=== PATIENT | male | born 1970 | race Caucasian/White ===

== ENCOUNTER → 2024-09-12 | Outpatient (CLI) | payer OTHER ==
--- NOTE | 2024-09-12 11:50 | HMCIMG ---
Exam Type: US SOFT TISSUE NECK Clinical Information: Parotid gland enlargement, lymphadenitis Comparison: None Findings: Bilateral normal appearing neck lymph nodes are seen, more prominent surrounding the left periparotid region. No parotid abnormalities are seen either side and there are no other significant findings. IMPRESSION: Normal-appearing lymph nodes of the neck.
--- NOTE | 2024-09-12 11:52 | HMCIMG ---
THYROID ULTRASOUND History: Goiter Comparison: None Findings: The examination shows normal thyroid lobes. No thyroid masses are seen. There are no nodules. Vascularity is unremarkable. No fluid collections are seen. IMPRESSION: Normal exam. Normal size of the thyroid. No evidence of goiter.
== END | disposition home or self-care (01) ==
LOC: RAH 10:19
PROVIDERS: ATTEND Internal Medicine
DX: E04.9 Nontoxic goiter, unspecified (principal); K11.1 Hypertrophy of salivary gland; L04.9 Acute lymphadenitis, unspecified
CPT/HCPCS: 76536

== ENCOUNTER → 2024-09-21 | Outpatient (CLI) | payer OTHER ==
[2024-09-21 11:45] LABS: CREATININE 0.6 mg/dL (0.5-1.3)
== END | disposition home or self-care (01) ==
LOC: LAB 10:52
PROVIDERS: ATTEND Student in an Organized Health Care Education/Training Program
DX: M79.9 Soft tissue disorder, unspecified (principal)
CPT/HCPCS: 36415; 82565; 84520

== ENCOUNTER → 2024-09-26 | Outpatient (CLI) | payer OTHER ==
[~2024-09-26] MED LIST: GADOTERATE MEGLUMINE 10 MMOL/20 ML VIAL IV ONE
--- NOTE | 2024-09-26 16:25 | HMCIMG ---
MR KNEE LEFT WW HISTORY: Lung COMPARISON: None TECHNIQUE: MRI of the left knee was performed utilizing multiple pulse sequences in axial, coronal and sagittal planes. Patient was given 17 cc of Clariscan. through intravenous route. FINDINGS: No abnormal signal intensity is seen of the visualized bony structure. The anterior cruciate and posterior cruciate ligaments are grossly intact. The medial and lateral collateral ligaments are also intact. Quadriceps tendon and patellar tendon are within normal limits. There is intrasubstance tear involving the medial and lateral menisci. There is medial meniscal tear involving posterior horn and body with inferior articular extension. There is cystic structure at the medial aspect of the left knee measuring 2.1 x 1.9 cm AP related to a sebaceous cyst. No evidence of Amaral's cyst is seen. IMPRESSION: 1. Moderate joint effusion. Medial meniscal tear. Subcutaneous soft tissue cyst in the medial aspect.
== END | disposition home or self-care (01) ==
LOC: RAH 14:45
PROVIDERS: ATTEND Student in an Organized Health Care Education/Training Program
DX: S83.242A Other tear of medial meniscus, current injury, left knee, initial encounter (principal); S83.282A Other tear of lateral meniscus, current injury, left knee, initial encounter; M25.862 Other specified joint disorders, left knee; M79.89 Other specified soft tissue disorders; M25.462 Effusion, left knee; X58.XXXA Exposure to other specified factors, initial encounter; Y93.89 Activity, other specified; Y92.89 Other specified places as the place of occurrence of the external cause; Y99.8 Other external cause status
CPT/HCPCS: 73723; A9575

== ENCOUNTER 2024-12-08 06:52 | Day surgery (SDC) | payer OTHER ==
[2024-12-06 13:40] LABS: IMMATURE GRANULOCYTE ABSOLUTE 0.03 K/uL (0-1); NUCLEATED RED BLOOD CELLS 0.0 % (0.0-0.19); PLATELET COUNT (AUTO) 174 K/uL (130-400); RED BLOOD CELL COUNT(AUTO) 4.51 MIL/uL (4.50-6.20); RED CELL DISTRIBUTION WIDTH 12.4 % (11.0-15.5); WHITE BLOOD COUNT (AUTO) 4.3 K/uL (4.8-10.8)
[2024-12-06 13:49] LABS: CREATININE 0.9 mg/dL (0.5-1.3); GLOMERULAR FILTR. RATE CALC 101.0 mL/min (>90); GLUCOSE,RANDOM 120.0 mg/dL (70-105); SODIUM SERUM 139.0 mmol/L (136-145); UREA NITROGEN, BLOOD 5.0 mg/dL (7-18)
[2024-12-06 14:10] VITALS: BP 162/85; PULSE 102; RESP 18; TEMP 98.8
[2024-12-06 14:34] LABS: INR 0.96 (0.85-1.15)
[~2024-12-08] VITALS: Ht 177.8 cm; Wt 85.4 kg
[2024-12-08] VITALS (11 sets, daily range): BP systolic 132–150; BP diastolic 78–99; PULSE 65–86; RESP 13–18; TEMP 97.2–97.9
[~2024-12-08 06:52] MED LIST changes: -GADOTERATE MEGLUMINE 10 MMOL/20 ML VIAL IV ONE; +LOSA50TA64 PO
[2024-12-08] MEDS ORDERED: LACTATED RINGERS 1000ML 1,000 ML IV ONE (07:36)
[2024-12-08] MEDS ORDERED: BUPIvacaine HCL/EPINEPHrine/PF 0.25% 10ML VIAL IJ ONE (09:38)
[2024-12-08] MEDS ORDERED: MIDAZOLAM HCL 1 MG/ML 2ML VIAL ONE ×2 (09:47→09:48)
[2024-12-08] MEDS ORDERED: ACET-2079 PO (10:45)
--- NOTE | 2024-12-08 11:15 | NUR ---
WOUND DERMABOND LEFT KNEE. NO REDNESS OR SWELLING TO INCISION. NO ACTIVE BLEEDING OR DRAINAGE NOTED. PATIENT ABLE TO WIGGLE TOES AND MOVE ANKLE. INSTRUCTED PATIENT TO NOT PICK AT DERMABOND AND TO LET DERMABOND FALL OFF. INSTRUCTED PATIENT TO NOT RUB OR SCRATCH SITE.
--- NOTE | 2024-12-08 14:50 | OP ---
Operative Note: DATE OF PROCEDURE: 12/08/24 SURGEON: TERE LIN MD FELLED SEAM OPERATOR CHAINSTITCH: Tosha Rogers ANESTHESIA: Sedation and local anesthesia ANESTHESIOLOGIST/HALAL MEAT PACKER: Diallo Swenson CRNA PREOPERATIVE DIAGNOSIS: Left knee mass, 3 x 3 cm, subcutaneous POSTOPERATIVE DIAGNOSIS: Left knee mass, 3 x 3 cm, subcutaneous PROCEDURE: Excision 3x3 cm left knee subcutaneous mass ESTIMATED BLOOD LOSS: 2 cc INDICATIONS: 54-year-old male with left knee mass that has been present in ca using discomfort secondary to mass effect along the medial aspect of his left knee. MRI was obtained that showed this was benign cyst in the subcutaneous tissues. After discussion of the risks, benefits, and alternatives, the patient voluntarily agreed to undergo the aforementioned procedure. DESCRIPTION OF PROCEDURE: Patient was properly identified in the preoperative holding area. Surgical site marking was verified and surgery consent reviewed. The patient was then taken to the operating room and placed in supine position on the OR table. After induction of sedation by anesthesia, preoperative antibiotics were given, all bony prominences were well-padded, and a well padded tourniquet was applied but not inflated at this time. The left lower extremity was then prepped and draped in usual sterile fashion. Surgical timeout was done verifying correct surgery, side, site, and location to be performed. We then began the procedure by injecting local anesthetic with epinephrine perioperative soft tissues. We then made an proximally 4 cm long incision centered directly over the mass. We dissected carefully through the skin and subcuticular tissues. Using the Metzenbaum scissors we slowly dissected carefully around the mass in all directions taking care not to violate the cyst. We had released to proximally 70% of the surrounding soft tissue when we incidentally punctured the cyst. Some clear fluid with suspended white soft tissues came out of this cyst. We attempted to continue to dissect the cyst free without letting any further material come out of it. Once we had this cyst free we passed this off to the back table as specimen. We then thoroughly irrigated out the wound with normal saline. The subcutaneous tissues were closed using 3-0 Vicryl. A running 4-0 subcuticular Monocryl stitch was used for closing the skin. Dermabond was applied over the top of this. The patient was then awakened from anesthesia and taken to the recovery room in stable condition. TERE LIN MD Dec 08, 2024 14:50
== END 2024-12-08 10:45 | disposition home or self-care (01) ==
LOC: DAH 06:52
PROVIDERS: ATTEND Student in an Organized Health Care Education/Training Program
DX: L72.0 Epidermal cyst (principal); I10 Essential (primary) hypertension; Z79.01 Long term (current) use of anticoagulants; Z90.89 Acquired absence of other organs; Z79.899 Other long term (current) drug therapy
CPT/HCPCS: 80048; 85025; 85610; 85730; 36415; 11403; 12032; 88304; A4663; J7120; J3010; J2250 ×2; J0665; J0690 ×2; A4649; A5120; A4215; A4223; A4213; A4222; A4221